=== PATIENT | female | born 1980 | race African-American/Black ===

== ENCOUNTER 2025-03-27 11:45 | Emergency (ER) | payer MEDICAID ==
[~2025-03-27] VITALS: Ht 165.1 cm; Wt 82.0 kg
[2025-03-27 11:55] VITALS: BP 167/88; RESP 16; TEMP 37; O2SAT 98
[2025-03-27 11:59] VITALS: PULSE 100; O2SAT 99
[2025-03-27] MEDS ORDERED: AMOX-494 MT (13:41)
[2025-03-27] MEDS ORDERED: IBUP-2030 MT (13:41)
== END 2025-03-27 14:08 | disposition home or self-care (01) ==
LOC: ER 12:20
DX: J02.0 Streptococcal pharyngitis (principal); B97.89 Other viral agents as the cause of diseases classified elsewhere; Z20.822 Contact with and (suspected) exposure to COVID-19
CPT/HCPCS: 81025; 87426; 87430; 99283